=== PATIENT | male | born 1970 | race Two or more races ===

== ENCOUNTER 2019-10-31 20:00 | Emergency (ER) | payer MEDICAID ==
[2019-10-31] MEDS ORDERED: DIPH/PERTUSS(ACELL)/TETANUS VAC/PF 0.5 ML SYR (>=10YO) IM ONE (20:09)
[2019-10-31] MEDS ORDERED: IBUPROFEN 800 MG TABLET PO ONE (20:09)
--- NOTE | 2019-10-31 20:12 | ER Document Report ---
ED Medical Screen (RME) - General Chief Complaint: Laceration Stated Complaint: LACERATION LEFT INDEX FINGER Time Seen by Provider: 10/31/19 20:05 Mode of Arrival: Ambulatory Information source: Patient Notes: 28-year-old male presents with laceration to dorsal left index finger approximately 3.5 cm deep. Reports he was cutting a watermelon. Left-handed. Reports he is on muscle relaxers because of back injury so may be that affected his coordination. Slight bleeding noted. Pt reports he is unable to flex his finger. Patient is unsure of what her tetanus shot is. I have greeted and performed a rapid initial assessment of this patient. A comprehensive ED assessment and evaluation of the patient, analysis of test results and completion of the medical decision making process will be conducted by additional ED providers. Physical Exam - Vital signs Vitals: Temp Pulse Resp BP Pulse Ox 97.2 F 76 16 149/95 H 98 10/31/19 20:06 10/31/19 20:06 10/31/19 20:06 10/31/19 20:06 10/31/19 20:06 Course - Vital Signs Vital signs: Temp Pulse Resp BP Pulse Ox 97.2 F 76 16 149/95 H 98 10/31/19 20:06 10/31/19 20:06 10/31/19 20:06 10/31/19 20:06 10/31/19 20:06
--- NOTE | 2019-10-31 20:45 | RADIOLOGY REPORT (SQ) ---
EXAM DESCRIPTION: XR FINGERS COMPLETED DATE/TME: 10/31/2019 20:09 CLINICAL HISTORY: 48 years, Male, finger laceration COMPARISON: None. NUMBER OF VIEWS: 3 TECHNIQUE: Frontal, oblique, and lateral radiographs were obtained LIMITATIONS: None. FINDINGS: Visualized is old healed fracture deformity involving the distal radial metaphysis. There may be subtle cortical irregularity about the dorsum of the second middle phalangeal base. Otherwise, remaining visualized osseous structures appear normal without acute fracture or dislocation. However, there is a focal soft tissue defect with associated subtle hyperdensity located about the dorsum of the second digit at the level of the PIP joint, suspicious for debris/radiopaque foreign body. IMPRESSION: Focal soft tissue laceration about the dorsum of the second digit with associated scattered foci of hyperdensity, potentially indicating debris/radiopaque foreign body. Correlate with physical exam. Questionable cortical irregularity about the dorsum of the second middle phalangeal base, raising the possibility of a subtle nondisplaced fracture. copyright 2010 [employer]- All Rights Reserved
[2019-10-31] MEDS ORDERED: LIDOCAINE 1% INJ-PF (10 MG/ML) 30 ML SDV INJ ONE (21:19)
--- NOTE | 2019-10-31 21:24 | ER Document Report ---
ED Wound - General Chief Complaint: Laceration Stated Complaint: LACERATION LEFT INDEX FINGER Time Seen by Provider: 10/31/19 20:05 Primary Care Provider: ELTON CHRISTENSEN PA-C [Primary Care Provider] - Follow up as needed JOSÉ MIGUEL CRISOSTOMO DO [ACTIVE STAFF] - Follow up in 3-5 days (Call Saturday for an appointment) Mode of Arrival: Ambulatory Information source: Patient Notes: 48-year-old male past medical history significant for hyperlipidemia presents to the emergency room with a laceration to the mid dorsal aspect of the left index finger. Patient states he was trying to cut a watermelon with his right hand when it slipped cutting his finger. Unknown last tetanus shot. Bleeding is controlled. Patient is left-handed. TRAVEL OUTSIDE OF THE [place] IN LAST 30 DAYS: No - HPI Notes: Tendon injury noted at the base of the left index finger as well as the mid distal aspect over the PIP joint. Patient does have full range of motion with flexion, extension, good strength with flexion and extension noted. Wound was irrigated extensively there were no foreign bodies noted as there was a question on the x-ray of foreign body. Wound did go all the way to the bone questionable fracture noted. Patient was given IM Rocephin, pain medication, dressing and splint applied by nursing staff as documented. - Related Data Allergies/Adverse Reactions: No Known Allergies Allergy (Verified 10/31/19 20:12) Home Medications: muscle relaxer Past Medical History - General Information source: Patient - Social History Smoking Status: Never Smoker Frequency of alcohol use: None Family History: Reviewed & Not Pertinent Patient has homicidal ideation: No - Immunizations Hx Diphtheria, Pertussis, Tetanus Vaccination: No Review of Systems - Review of Systems Constitutional: No symptoms reported Cardiovascular: No symptoms reported Respiratory: No symptoms reported Musculoskeletal: Joint pain - Left index finger pain Skin: Other - Left index finger laceration Neurological/Psychological: No symptoms reported -: Yes All other systems reviewed and negative Physical Exam - Vital signs Vitals: Temp 97.4 F 10/31/19 20:05 - General General appearance: Appears well, Alert In distress: Mild - Respiratory Respiratory status: No respiratory distress Chest status: Nontender Breath sounds: Normal Chest palpation: Normal - Cardiovascular Rhythm: Regular Heart sounds: Normal auscultation Murmur: No - Extremities Hand: Tender - Of the dorsal PIP joint of the left index finger, Laceration - 4 cm laceration noted to the dorsal aspect of the left index finger over the PIP joint. - Neurological Neuro grossly intact: Yes Cognition: Normal Orientation: AAOx4 [place] Coma Scale Eye Opening: Spontaneous [place] Coma Scale Verbal: Oriented [place] Coma Scale Motor: Obeys Commands [place] Coma Scale Total: 15 Speech: Normal Motor strength normal: LUE, RUE, LLE, RLE Sensory: Normal Notes: Positive left radial pulse. Capillary refill less than 3 seconds. Able to flex and extend finger without difficulty good strength. - Skin Skin Temperature: Warm Skin Moisture: Dry Skin Color: Normal Skin irregularity: Laceration Location of irregularity: Extremities Character of irregularity: Linear Notes: 4 cm laceration noted to the dorsal aspect of the left index finger over the PIP joint. Bleeding is controlled. Course - Re-evaluation Re-evalutation: 10/31/19 22:36 Wound was cleansed and repaired as documented. Dressing and splinting by nursing staff as documented. Patient given IM Rocephin in the emergency room along with 1 [place]. Patient will be discharged home on p.o. antibiotics, p.o. pain medication. Counseled on proper wound care. X-ray results with patient. He is to follow-up with Dr. Crisostomo as discussed call for an appointment on Saturday. He was given strict return to the emergency room guidelines. Return for any new or worsening symptoms. All questions were answered. Patient verbalized understanding and agrees with plan of care. - Vital Signs Vital signs: Temp Pulse Resp BP Pulse Ox 97.2 F 76 16 149/95 H 98 10/31/19 20:06 10/31/19 20:06 10/31/19 20:06 10/31/19 20:06 10/31/19 20:06 Procedures - Laceration/Wound Repair Left 2nd digit Time completed: 22:29 Wound length (cm): 4 Wound's Depth, Shape: Into muscle, Linear Laceration pre-procedure: Sterile PPE donned, Sterile drapes applied, Other Volume Anesthetic (mLs): 2 Wound explored: No foreign body removed Irrigated w/ Saline (mLs): 50 Wound Repaired With: Sutures Suture Size/Type: 4:0 Number of Sutures: 8 Layer Closure?: No Post-procedure wound care: Sterile dressing applied, Splint applied Post-procedure NV exam normal: Yes Complications: No Discharge - Discharge Clinical Impression: Other injury of flexor muscle, fascia and tendon of left index finger at forearm level, initial encounter Open fracture of phalanx of left index finger Qualifiers: Encounter type: initial encounter Phalanx: middle Fracture alignment: nondisplaced Qualified Code(s): S62.651B - Nondisplaced fracture of middle phalanx of left index finger, initial encounter for open fracture Laceration of left index finger Qualifiers: Encounter type: initial encounter Damage to nail status: without damage Foreign body presence: without foreign body Qualified Code(s): S61.211A - Laceration without foreign body of left index finger without damage to nail, initial encounter Condition: Stable Disposition: HOME, SELF-CARE Instructions: Fractured Finger ([facility]), Laceration Care ([facility]), Oral Narcotic Medication ([facility]), Tendon Laceration ([facility]), Tetanus Immunization Given ([facility]) Additional Instructions: Keep wound clean and dry do not remove splint. Call Dr. Crisostomo on Saturday for follow-up appointment. Take all medications as prescribed. Return for any new or worsening symptoms. Prescriptions: Cephalexin Monohydrate [Keflex 500 mg Capsule] 500 mg PO QID 10 Days #40 capsule Referrals: ELTON CHRISTENSEN PA-C [Primary Care Provider] - Follow up as needed JOSÉ MIGUEL CRISOSTOMO DO [ACTIVE STAFF] - Follow up in 3-5 days (Call Saturday for an appointment)
[2019-10-31] MEDS ORDERED: HYDROCODONE/ACETAMINOPHEN 5-325 MG TABLET PO ONE (22:29)
[2019-10-31] MEDS ORDERED: CEFTRIAXONE 1 GM/D5W RTU 1 GM/50 ML RTUPB IV ONE (22:29)
[2019-10-31] MEDS ORDERED: HYDROCODONE/ACETAMINOPHEN 5-325 MG (6 TAB/ER DISP) PO PRN (22:40)
[2019-10-31] MEDS ORDERED: CEFTRIAXONE INJ 1000 MG VIAL IM ONE (23:24)
[2019-11-01 00:40] VITALS: BP 139/93
== END 2019-11-01 00:40 | disposition home or self-care (01) ==
LOC: ER 20:00
DX: S62.651B Nondisplaced fracture of middle phalanx of left index finger, initial encounter for open fracture (principal); W26.0XXA Contact with knife, initial encounter; Y93.G9 Activity, other involving cooking and grilling; Z79.899 Other long term (current) drug therapy; Z23 Encounter for immunization
CPT/HCPCS: 99283; 96372; 90471; 73140; 90715; 12002; J3490 ×2; J0696